=== PATIENT | female | born 1965 | race Caucasian/White ===

== ENCOUNTER 2017-01-31 17:09 | Emergency (ER) | payer OTHER ==
[2017-01-31 17:20] VITALS: TEMP 98.2; BMI 37.0
[2017-01-31] MEDS ORDERED: SODIUM CHLORIDE 1,000 ML IV STA (17:27)
[2017-01-31] MEDS ORDERED: ONDANSETRON 4 MG/2 ML VIAL IVPB ONE (17:27)
--- NOTE | 2017-01-31 17:27 | PDOC ---
[id number] [id number] VOMITING/DIARRHEA/STOMACH ACHE Time Seen by Provider: 01/31/17 17:23 Past History - Past Medical History Allergies/Adverse Reactions: Allergies Allergy/AdvReac Type Severity Reaction Status Date / Time No Known Allergies Allergy Verified 01/31/17 17:16 Home Medications: Ambulatory Orders Levothyroxine [Synthroid -] 100 mcg PO DAILY 01/31/17 Asthma: Yes Thyroid Disease: Yes - Surgical History Cholecystectomy: Yes - Psycho/Social/Smoking Cessation Hx Suicidal Ideation: No Smoking History: Former smoker Have you smoked in the past 12 months: No Information on smoking cessation initiated: No *Physical Exam - Vital Signs Last Vital Signs Temp Pulse Resp BP Pulse Ox 98.2 F 95 H 19 114/55 97 01/31/17 17:16 01/31/17 17:16 01/31/17 17:16 01/31/17 17:16 01/31/17 17:16 ED Treatment Course - LABORATORY CBC & Chemistry Diagram: 01/31/17 17:50 01/31/17 17:50 Medical Decision Making - Medical Decision Making 02/23/17 03:48 this 51 yo female dev nausea,vomiting and diarrhea after eating at [employer]. The pt was examined by the nurse practitioner and I agree with her assessment and management of the case *DC/Admit/Observation/Transfer Diagnosis at time of Disposition: Gastroenteritis - Discharge Dispostion Disposition: HOME - Referrals Referrals: Thelma Dorsey [Primary Care Provider] - - Patient Instructions Printed Discharge Instructions: Gastroenteritis Diet Additional Instructions: drink plenty of fluids. start a BRAT (bananas, rice, apples, toast ) diet follow up with your doctor as soon as possible.
[2017-01-31] MEDS ORDERED: ONDANSETRON 4 MG/2 ML VIAL ONE (17:42)
[2017-01-31 18:04] LABS: BASOPHIL 0.5 % (0-2.0); EOSINOPHIL 0.8 % (0-4.5); MCH 30.4 pg (25.7-33.7); MCHC 34.2 g/dl (32.0-36.0); MEAN CELL VOLUME 88.9 fl (80-96); NEUTROPHILS 55.3 % (42.8-82.8); RDW 13.1 % (11.6-15.6); WHITE BLOOD COUNT 5.4 K/mm3 (4.0-10.0)
[2017-01-31 18:42] LABS: URINE APPEARANCE CLEAR; URINE BILIRUBIN NEGATIVE (NEGATIVE); URINE BLOOD NEGATIVE (NEGATIVE); URINE COLOR YELLOW; URINE GLUCOSE (UA) NEGATIVE (NEGATIVE); URINE KETONE NEGATIVE (NEGATIVE); URINE LEUK ESTERASE NEGATIVE (NEGATIVE); URINE NITRITE NEGATIVE (NEGATIVE); URINE PROTEIN NEGATIVE (NEGATIVE); URINE UROBILINOGEN NEGATIVE E.U./dl (0.2-1.0)
[2017-01-31 19:00] LABS: MEAN PLT VOLUME 10.4 fl (7.5-11.1); PLATELET COUNT 108 K/MM3 (134-434)
[2017-01-31 19:01] LABS: PLATELET COMMENT2 NO CLUMPING NOTED; PLATELET COMMENT3 NO CLOTTING DETECTED; PLATELET ESTIMATE SLT DECREASED (NORMAL)
--- NOTE | 2017-01-31 19:10 | PDOC ---
History of Present Illness - General Chief Complaint: Pain, Acute Stated Complaint: VOMITING/DIARRHEA/STOMACH ACHE Time Seen by Provider: 01/31/17 17:23 - History of Present Illness Initial Comments: 01/31/17 18:52 CHIEF COMPLAINT: nausea/vomiting/diarrhea HISTORY OF PRESENT ILLNESS: 51 yo F presents to ED for nausea/vomiting/diarrhea x 2-3 days. No recent travel or sick contacts. PAST MEDICAL HISTORY: Denies past medical history FAMILY HISTORY: Denies SOCIAL HISTORY: Denies tobacco, alcohol, illicit drug use. SURGICAL HISTORY: Denies ALLERGIES: No known drug allergies REVIEW OF SYSTEMS General/Constitutional: Denies fever or chills. Denies weakness, weight change. HEENT: Denies change in vision. Denies ear pain or discharge. Denies sore throat. Cardiovascular: Denies chest pain or shortness of breath. Respiratory: Denies cough, wheezing, or hemoptysis. Gastrointestinal: Denies nausea, vomiting, diarrhea or constipation. Denies rectal bleeding. Genitourinary: Denies dysuria, frequency, or change in urination. Musculoskeletal: Denies joint or muscle swelling or pain. Denies neck or back pain. Skin and breasts: Denies rash or easy bruising. Neurologic: Denies headache, vertigo, loss of consciousness, or loss of sensation. Psychiatric: Denies depression or anxiety. Endocrine: Denies increased thirst. Denies abnormal weight change. Hematologic/Lymphatic: Denies anemia, easy bleeding, or history of blood clots. Allergic/Immunologic: Denies hives or skin allergy. Denies latex allergy. PHYSICAL EXAM General Appearance: Well-appearing, appropriately dressed. No apparent distress , no intoxication. HEENT: EOMI, PERRLA, normal ENT inspection, normal voice, TMs normal, pharynx normal. No conjunctival pallor. No photophobia, scleral icterus. Neck: Supple. Trachea midline. No tenderness, rigidity, carotid bruit, stridor , lymphadenopathy, or thyromegaly. Respiratory/Chest: Lungs CTAB. No shortness of breath, chest tenderness, respiratory distress, accessory muscle use. No crackles, rales, rhonchi, stridor , wheezing, dullness Cardiovascular: RRR. S1, S2. No JVD, murmur, bradycardia, tachycardia. Vascular Pulses: Dorsalis-Pedis (R): 2+, Dorsalis-Pedis (L): 2+ Gastrointestinal/Abdominal: Normal bowel sounds. Abdomen soft, non-distended. No tenderness or rebound tenderness. No organomegaly, pulsatile mass, guarding , hernia, hepatomegaly, splenomegaly. Lymphatic: No adenopathy, tenderness. Musculoskeletal/Extremities: Normal inspection. FROM of all extremities, normal capillary refill. Pelvis Stable. No CVA tenderness. No tenderness to extremities, pedal edema, swelling, erythema or deformity. Integumentary: Appropriate color, dry, warm. 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 Fully oriented, alert. Appropriate mood/affect. Motor strength 5/5. No appreciable EOM palsy, facial droop or sensory deficit. Past History - Past Medical History Allergies/Adverse Reactions: Allergies Allergy/AdvReac Type Severity Reaction Status Date / Time No Known Allergies Allergy Verified 01/31/17 17:16 Home Medications: Ambulatory Orders Levothyroxine [Synthroid -] 100 mcg PO DAILY 01/31/17 Asthma: Yes Thyroid Disease: Yes - Surgical History Cholecystectomy: Yes - Psycho/Social/Smoking Cessation Hx Suicidal Ideation: No Smoking History: Former smoker Have you smoked in the past 12 months: No Information on smoking cessation initiated: No *Physical Exam - Vital Signs Last Vital Signs Temp Pulse Resp BP Pulse Ox 98.2 F 95 H 19 114/55 97 01/31/17 17:16 01/31/17 17:16 01/31/17 17:16 01/31/17 17:16 01/31/17 17:16 ED Treatment Course - LABORATORY CBC & Chemistry Diagram: 01/31/17 17:50 01/31/17 17:50 - ADDITIONAL ORDERS Additional order review: Laboratory Results 01/31/17 18:30 Urine Color Yellow Urine Appearance Clear Urine pH 6.0 Ur Specific [place] 1.024 Urine Protein Negative Urine Glucose (UA) Negative Urine Ketones Negative Urine Blood Negative Urine Nitrite Negative Urine Bilirubin Negative Urine Urobilinogen Negative Ur Leukocyte Esterase Negative 01/31/17 17:50 RBC 4.63 MCV 88.9 MCHC 34.2 RDW 13.1 Neutrophils % 55.3 D Lymphocytes % 31.0 D Monocytes % 12.4 H Eosinophils % 0.8 Basophils % 0.5 - Medications Given in the ED: ED Medications Discontinued Medications Generic Name Dose Route Start Last Admin Trade Name Freq PRN Reason Stop Dose Admin Sodium Chloride 1,000 mls @ 1,000 mls/hr 01/31/17 17:27 01/31/17 17:45 Normal Saline - IV 01/31/17 18:26 1,000 mls/hr ASDIR STA Administration Ondansetron HCl 4 mg 01/31/17 17:27 01/31/17 17:45 Zofran Injection IVPB 01/31/17 17:28 4 mg ONCE ONE Administration Medical Decision Making - Medical Decision Making -IVF -Zofran -Labs Labs remarkable for K+ of 3.2. 40 mEq KCl given. [facility] *DC/Admit/Observation/Transfer Diagnosis at time of Disposition: Gastroenteritis - Discharge Dispostion Disposition: HOME - Referrals Referrals: Thelma Dorsey [Primary Care Provider] - - Patient Instructions Printed Discharge Instructions: Gastroenteritis Diet Additional Instructions: drink plenty of fluids. start a BRAT (bananas, rice, apples, toast ) diet follow up with your doctor as soon as possible.
--- NOTE | 2017-01-31 19:30 | PDOC ---
*Physical Exam - Vital Signs Last Vital Signs Temp Pulse Resp BP Pulse Ox 98.2 F 95 H 19 114/55 97 01/31/17 17:16 01/31/17 17:16 01/31/17 17:16 01/31/17 17:16 01/31/17 17:16 - Physical Exam General Appearance: Yes: Appropriately Dressed Respiratory/Chest: positive: Lungs Clear, Normal Breath Sounds Cardiovascular: positive: Regular Rhythm, Regular Rate ED Treatment Course - LABORATORY CBC & Chemistry Diagram: 01/31/17 17:50 01/31/17 17:50 - ADDITIONAL ORDERS Additional order review: Laboratory Results 01/31/17 18:30 Urine Color Yellow Urine Appearance Clear Urine pH 6.0 Ur Specific [place] 1.024 Urine Protein Negative Urine Glucose (UA) Negative Urine Ketones Negative Urine Blood Negative Urine Nitrite Negative Urine Bilirubin Negative Urine Urobilinogen Negative Ur Leukocyte Esterase Negative 01/31/17 17:50 RBC 4.63 MCV 88.9 MCHC 34.2 RDW 13.1 MPV 10.4 D Neutrophils % 55.3 D Lymphocytes % 31.0 D Monocytes % 12.4 H Eosinophils % 0.8 Basophils % 0.5 - Medications Given in the ED: ED Medications Discontinued Medications Generic Name Dose Route Start Last Admin Trade Name Freq PRN Reason Stop Dose Admin Sodium Chloride 1,000 mls @ 1,000 mls/hr 01/31/17 17:27 01/31/17 17:45 Normal Saline - IV 01/31/17 18:26 1,000 mls/hr ASDIR STA Administration Ondansetron HCl 4 mg 01/31/17 17:27 01/31/17 17:45 Zofran Injection IVPB 01/31/17 17:28 4 mg ONCE ONE Administration Medical Decision Making - Medical Decision Making 01/31/17 20:16 patient is fweeling better. no abdominal pain. eating CHilli at bedside. patient requesting to go home. CMP pending. K: 3.2 k-dur given patient feeling better. will d/c home *DC/Admit/Observation/Transfer Diagnosis at time of Disposition: Gastroenteritis - Discharge Dispostion Disposition: HOME - Referrals Referrals: Thelma Dorsey [Primary Care Provider] - - Patient Instructions Printed Discharge Instructions: Gastroenteritis Diet Additional Instructions: drink plenty of fluids. start a BRAT (bananas, rice, apples, toast ) diet follow up with your doctor as soon as possible.
[2017-01-31 20:18] LABS: ALK PHOS 132 U/L (45-117); ANION GAP 14 (8-16); BILIRUBIN,TOTAL 0.3 mg/dL (0.2-1.0); CALCIUM 8.3 mg/dL (8.5-10.1); CO2 20 mmol/L (21-32); CREATININE 0.7 mg/dL (0.55-1.02); GLUCOSE,RANDOM 114 mg/dL (74-106); SGOT/AST 68 U/L (15-37); SGPT/ALT 107 U/L (12-78); TOT PROT 7.9 g/dl (6.4-8.2)
[2017-01-31] MEDS ORDERED: POTASSIUM CHLORIDE TABS 20 MEQ TABLET.ER (FP) PO ONE ×2 (20:26→20:33)
[2017-01-31 20:42] VITALS: BP 122/69; PULSE 89
== END 2017-01-31 20:42 | disposition home or self-care (01) ==
LOC: JER 17:09
PROC: 3E033GC Introduction of Other Therapeutic Substance into Peripheral Vein, Percutaneous Approach (ICD-10-PCS; principal; 2017-01-31)
DX: K52.9 Noninfective gastroenteritis and colitis, unspecified (principal)
CPT/HCPCS: 36415; 80053; 81003; 83690; 85025; 99282-25